=== PATIENT | male | born 1980 | race Hispanic/Latino ===

== ENCOUNTER 2024-09-26 06:07 | Emergency (ER) | payer OTHER ==
[~2024-09-26] VITALS: Ht 160 cm; Wt 100.0 kg
[2024-09-26] MEDS ORDERED: FLUORESCEIN SOD 1 EA STRP OU ONE (06:30)
[2024-09-26] MEDS ORDERED: TETRACAINE HCL 0.5% 4 ML BTL OU SCH (06:30)
[2024-09-26] MEDS ORDERED: CIPROFLOXACIN 0.3% 5 ML HOME.PACK OPTH ONE (07:00)
[2024-09-26 07:15] VITALS: BP 178/100
== END 2024-09-26 07:15 | disposition home or self-care (01) ==
LOC: ED 06:07
DX: T15.01XA Foreign body in cornea, right eye, initial encounter (principal); W44.9XXA Unspecified foreign body entering into or through a natural orifice, initial encounter
CPT/HCPCS: 65220; 99283-25